=== PATIENT | female | born 1930 | race Caucasian/White ===

== ENCOUNTER 2017-03-20 11:54 | Observation (INO) ==
[2017-03-20] MEDS ORDERED: 0.9 % SODIUM CHLORIDE 1,000 ML IV ONE (12:11)
--- NOTE | 2017-03-20 12:11 | Emergency Department Note ---
Nausea/Vomiting/Diarrhea HPI - General Chief complaint: Nausea/Vomiting/Diarrhea Stated complaint: n/v/d Time Seen by Provider: 03/20/17 12:07 Source: patient Mode of arrival: ambulatory Limitations: no limitations - History of Present Illness HPI Narrative: This patient has had nausea vomiting and and diarrhea for the last 3 days. She gets slight abdominal discomfort before she has a bowel movement. Has been having 4-5 episodes of diarrhea per day. - Related Data Home Medications Medication Instructions Recorded Confirmed lidocaine 5 % topical patch 2 mg TRANSDERMA Q72 06/21/15 03/20/17 melatonin 3 mg tablet 3 mg PO HS PRN 05/29/16 03/20/17 Previous Rx's Medication Instructions Recorded OXYGEN AND SUPPLIES #1 each 10/28/15 apixaban 2.5 mg tablet 2.5 mg PO BID #60 tab 08/06/16 furosemide 20 mg tablet 20 mg PO QDAY #90 tab 12/05/16 carvedilol 3.125 mg tablet 1.56 mg PO BID #90 tab 01/01/17 paroxetine 40 mg tablet 40 mg PO QDAY 90 Days 01/01/17 clonazepam 1 mg tablet 1 mg PO .COMPLEX PRN #90 tab 02/01/17 fentanyl 12 mcg/hr transdermal 1 patch TRANSDERMA Q72H #10 patch 02/05/17 patch HYDROcodone/APAP 10/325MG [[place] 1 - 2 tab PO Q4H PRN #60 tab 02/22/17 10/325Mg] acetaminophen 300 mg-codeine 30 mg 2 tab PO Q6H PRN #120 tab 02/22/17 tablet Allergies Allergy/AdvReac Type Severity Reaction Status Date / Time latex [LATEX] Allergy Unknown SWELLING Verified 03/20/17 11:58 penicillin V Allergy Unknown Unknown Verified 03/20/17 11:58 Sulfa (Sulfonamide Allergy Unknown Unknown Verified 03/20/17 11:58 Antibiotics) tetanus toxoid, adsorbed Allergy Unknown Unknown Verified 03/20/17 11:58 ciprofloxacin [From Cipro] AdvReac Intermediate Cramping Verified 03/20/17 11:58 of the Muscles Review of Systems All systems ED: reviewed and negative except as stated. Past Medical History - Past Medical History PMFSH Narrative: Medical History (Last Reviewed 03/20/17 @ 11:41 by Sandi Crabtree, DNP, BABY DOCTOR) Renal artery stenosis (Chronic) Congestive heart failure (Chronic) Allergic rhinitis (Chronic) Cerebrovascular accident (Resolved) COPD (chronic obstructive pulmonary disease) (Chronic) Tricuspid regurgitation (Chronic) Schatzki's ring (Chronic) Pulmonary hypertension (Chronic) Osteoporosis (Chronic) Osteoarthritis (Chronic) Mitral regurgitation (Chronic) Macular degeneration (Chronic) Leukocytosis (Chronic) Insomnia (Chronic) Hypokalemia (Chronic) Hypertension, benign (Chronic) Gastroesophageal reflux (Chronic) Dysphagia (Chronic) Dizziness (Chronic) Depressive disorder (Chronic) DJD (degenerative joint disease) (Chronic) Constipation (Chronic) Cataracts, bilateral (Chronic) Back pain (Chronic) Atrial fibrillation (Chronic) Aortic valve insufficiency (Chronic) Anxiety disorder (Chronic) Acute bronchitis (Resolved) Balance problems (Resolved) CVA (cerebral vascular accident) (Resolved) Closed femur fracture (Resolved) Closed fracture of wrist (Resolved) Closed hip fracture (Resolved) Fever of unknown origin (Resolved) Gastritis (Resolved) Hoarseness (Resolved) Ischemic colitis (Resolved) Low oxygen saturation (Resolved) Pain associated with defecation (Resolved) Pneumonia (Resolved) Sebaceous cyst (Resolved) Sepsis (Resolved) Shortness of breath (Resolved) Past Surgical History (Last Reviewed 03/20/17 @ 11:41 by Sandi Crabtree, GISELLE, BABY DOCTOR) History of appendectomy (Resolved) History of colon resection (Resolved) History of hip surgery (Resolved) History of intestinal surgery (Resolved) Hx of adenoidectomy (Resolved) Hx of cataract surgery (Resolved) Hx of cholecystectomy (Resolved) Hx of esophagogastroduodenoscopy (Resolved) Hx of hysterectomy (Resolved) Hx of oophorectomy (Resolved) Hx of plastic surgery (Resolved) Hx of reduction mammoplasty (Resolved) Hx of tonsillectomy (Resolved) Family History (Last Reviewed 03/20/17 @ 11:41 by Sandi Crabtree, GISELLE, BABY DOCTOR) sister Malignant neoplasm of brain Malignant Neoplasm of Skin son Malignant neoplasm of brain mother Malignant neoplasm of breast Malignant neoplasm of colon Essential hypertension Acute myocardial infarction Medical history: Reports: atrial fibrillation, hypertension, valvular heart disease, other (UTIsRenal artery stenosis) Surgical history ED: Reports: appendectomy, breast surgery, cholecystectomy, orthopedic, other (right hip pin), EL/BSO, other (tonsillectomy, small bowel resection for ischemia, cystopexy) - Social History Alcohol use: Reports: Rarely Drug use: Reports: none Physical Exam - General Limitations: no limitations General appearance: alert, in no apparent distress - Head Head exam: atraumatic, normocephalic - Eye Eye exam: Present: normal appearance - ENT ENT exam: normal exam - Neck Neck exam: Present: normal inspection - Chest Chest inspection: Present: normal inspection - Respiratory Respiratory exam: Present: normal lung sounds bilaterally - Cardiovascular Cardiovascular exam: Present: regular rate, normal rhythm, normal heart sounds - Abdominal Exam Abdominal exam: Present: soft. Absent: distention, tenderness - Neurological Exam Neurological exam: Present: alert - Psychiatric Psychiatric exam: Present: normal affect, normal mood - Skin Skin exam: Present: warm, dry Course Vital Signs Temperature 97.2 F 03/20/17 11:54 Pulse Rate 64 03/20/17 11:54 Respiratory Rate 14 03/20/17 11:54 Blood Pressure 128/84 03/20/17 11:54 Pulse Oximetry (%) 95 03/20/17 11:54 Temperature 97.2 F 03/20/17 11:54 Pulse Rate 70 03/20/17 14:31 Respiratory Rate 21 03/20/17 14:31 Blood Pressure 148/76 03/20/17 14:31 Pulse Oximetry (%) 96 03/20/17 14:31 Nausea/Vomiting/Diarrhea - [facility] Narrative Medical decision making narrative: This patient is dehydrated with hypokalemia and will be admitted to the hospital by the hospitalist. - Lab Data Lab results reviewed: Yes I reviewed the patient's lab results. Result diagrams: 03/20/17 12:33 03/20/17 12:33 Lab Results 03/20/17 03/20/17 03/20/17 Range/Units 12:33 12:33 14:30 WBC 5.2 (4.5-11.0) K/mcL RBC 4.14 (4.00-5.20) M/mcL Hgb 12.5 (12.0-15.0) g/dL Hct 36.5 (36.0-48.0) % MCV 88.1 (80.0-100.0) fL MCH 30.2 (26.0-34.0) pg MCHC 34.3 (31.0-36.0) g/dL RDW 14.4 (11.5-14.5) % Plt Count 141 (140-440) K/mcL MPV 9.0 (7.4-10.4) fL Gran % 57.3 (38.0-78.0) % Lymph % (Auto) 34.5 (15.5-49.0) % [place] % (Auto) 6.5 (1.0-12.0) % Eos % (Auto) 1.2 (0.0-7.0) % Baso % (Auto) 0.5 (0.0-2.0) % Gran # 3.0 (1.8-8.0) K/mcL Lymph # (Auto) 1.8 (1.5-4.8) K/mcL [place] # (Auto) 0.3 (0.1-0.9) K/mcL Eos # (Auto) 0.1 (0.0-0.7) K/mcL Baso # (Auto) 0 (0.0-0.3) K/mcL Sodium 139 (133-145) mmol/L Potassium 2.7 L* (3.3-5.1) mmol/L Chloride 93 L (96-108) mmol/L Carbon Dioxide 30 (22-30) mmol/L Anion Gap 16.0 (8-16) BUN 25 H (8-23) mg/dl Creatinine 1.3 H (0.6-1.1) mg/dl GFR Calculation 37 Glucose 110 H (70-105) mg/dL Calcium 9.3 (8.6-10.4) mg/dl Total Bilirubin 0.9 (0.0-1.0) mg/dL AST 25 (0-37) U/l ALT 9 (0-40) U/l Alkaline Phosphatase 60 (39-117) U/L Total Protein 7.6 (5.9-8.4) gm/dL Albumin 4.3 (3.2-5.2) gm/dL Globulin 3.3 (2.2-3.7) gm/dL Albumin/Globulin Ratio 1.3 (1.0-2.3) Urine Color Straw Urine Appearance Clear Urine pH 6.0 (5.0-9.0) Ur Specific [place] 1.006 (1.000-1.035) Urine Protein Neg (NEG) mg/dL Urine Glucose (UA) Negative (NEG) mg/dL Urine Ketones Neg (NEG) mg/dL Urine Occult Blood Neg (<0.03) mg/dL Urine Nitrate Neg (NEG) Urine Bilirubin Neg (NEG) mg/dL Urine Urobilinogen Neg (NEG) mg/dL Ur Leukocyte Esterase Neg (NEG) /uL Ur Culture Indicated? No Disposition Clinical Impression: Gastroenteritis, Dehydration, Hypokalemia Disposition: Xfer As Inpt ([facility]) Condition: Good Referrals: Sandi Crabtree, GISELLE, BABY DOCTOR [Primary Care Provider] - Time of Disposition: 15:13
[2017-03-20 12:59] LABS: Basophils # (Auto) 0 K/mcL (0.0-0.3); Basophils % (Auto) 0.5 % (0.0-2.0); Eosinophils # (Auto) 0.1 K/mcL (0.0-0.7); Eosinophils % (Auto) 1.2 % (0.0-7.0); Granulocytes % (Auto) 57.3 % (38.0-78.0); Lymphocytes # (Auto) 1.8 K/mcL (1.5-4.8); Lymphocytes % (Auto) 34.5 % (15.5-49.0); Mean Cell Volume 88.1 fL (80.0-100.0); Mean Corpuscular HGB Conc 34.3 g/dL (31.0-36.0); Mean Corpuscular Hemoglobin 30.2 pg (26.0-34.0); Monocytes # (Auto) 0.3 K/mcL (0.1-0.9); Monocytes % (Auto) 6.5 % (1.0-12.0); Platelet Count 141 K/mcL (140-440); RBC 4.14 M/mcL (4.00-5.20); Red Cell Distribution Width 14.4 % (11.5-14.5)
[2017-03-20 13:33] LABS: ALT/SGPT 9 U/l (0-40); Albumin 4.3 gm/dL (3.2-5.2); Albumin/Globulin Ratio 1.3 (1.0-2.3); Alkaline Phosphatase 60 U/L (39-117); Blood Urea Nitrogen 25 mg/dl (8-23)
[2017-03-20] MEDS ORDERED: POTASSIUM CHLORIDE 40 MEQ in DEXTROSE 5% IN WATER 500 ML IV ONE (14:01)
[2017-03-20] MEDS ORDERED: ACETAMINOPHEN W/CODEINE #3 1 TABLET PO ONE (14:46)
[2017-03-20 14:54] LABS: Appearance,Urine CLEAR; Bilirubin,Urine NEG (NEG); Color,Urine STRAW; Glucose,Urine (UA) NEGATIVE (NEG); Leukocyte Esterase,Urine NEG /uL (NEG); Nitrate,Urine NEG (NEG); Protein,Urine NEG (NEG); Specific Gravity,Urine 1.006 (1.000-1.035); Urine Blood NEG mg/dL (<0.03); Urobilinogen,Urine NEG (NEG)
--- NOTE | 2017-03-20 15:08 | Internal Med History&Physical ---
Medical - H&P: HPI Patient information: Note initiated : 03/20/17 at 2:56 pm Patient: Gin Feng 87 y/o F admitted on for n/v/d. History of present illness: Ms. Feng is a 87 year old white female who, according to her daughter, has chronic pain and has had chronic bowel symptoms for many many years. She reports that she often has alternating constipation and diarrhea. She has noticed some increased dizziness over the last several days, and had nausea and vomiting yesterday and the day before. She presented to her primary care office this morning, and systolic blood pressure was 68, so they sent her over to the emergency room. She denies recent fever or chills. She does have chronic intermittent vertigo, which is led to several falls in the past, with resulting broken bones. She does note occasional abdominal cramping prior to having diarrhea. However, she has not had vomiting or diarrhea at all today. ER evaluation showed significant hypokalemia and acute renal injury. - she denies recent antibiotic use. Has not eaten anything unusual or been traveling. Otherwise, she denies headaches, new eye or ear symptoms, sore throat or cough, chest pain or palpitations. She says she has occasional dyspnea with exertion, which is chronic. She denies melena or bright red blood per rectum, or dysuria. She does have chronic intermittent incontinence. Medical History Allergic rhinitis (Chronic) Anxiety disorder (Chronic) Aortic valve insufficiency, MR, TR CHF Atrial fibrillation (Chronic) Back pain (Chronic) COPD (chronic obstructive pulmonary disease) (Chronic) confirmed on PFT 08/2015; history of smoking Constipation (Chronic) DJD (degenerative joint disease) (Chronic) Depressive disorder (Chronic) Dizziness (Chronic) Dysphagia (Chronic) Dr. Soto; history of esophageal swallowing disorder Gastroesophageal reflux (Chronic) Hypertension, benign (Chronic) Hypokalemia (Chronic) Insomnia (Chronic) Macular degeneration (Chronic) Osteoarthritis (Chronic) Osteoporosis (Chronic) Pulmonary hypertension (Chronic) Renal artery stenosis (Chronic) left sided on CT of 05/31/16 Schatzki's ring (Chronic) CVA (cerebral vascular accident) (Resolved) 1. Echocardiogram 08/24/2015 mod aortic regurg, LVEF 55% 2. ULS carotids 09/16/2015 No significant stenosis 3. 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; discharged 11/06 after 3 day hospitalization. Acute ischemic colitis of the distal transverse colon Pneumonia (Resolved),Sepsis (Resolved) Surgical History History of appendectomy (Resolved), History of colon resection (Resolved) 2006-2 feet of small bowel removed due to ischemic gangrenous bowel secondary to adhesion and a volvulus per Dr. Thomas History of hip surgery (Resolved) 10/27/14-Dr. Ram-Right hip intramedullary nailing History of intestinal surgery (Resolved) Bowel surgery to remove adhesions Hx of adenoidectomy (Resolved) ,Hx of cataract surgery (Resolved), Hx of cholecystectomy (Resolved) 2004 Hx of esophagogastroduodenoscopy (Resolved), 11/23/14, Hx of hysterectomy (Resolved),41 years of age, Hx of oophorectomy ( Resolved) 41 years of age,Hx of plastic surgery (Resolved)45 years of age- eyelid surgery for excessive skin Hx of reduction mammoplasty (Resolved) 54 years of age Hx of tonsillectomy (Resolved) 11 years of age Medications: Paxil 40 mg daily Melatonin 3 mg nightly as needed Lidoderm patch topically every afternoon Lasix 20 mg daily next line fentanyl patch 12 mcg/h, every 3 days Clonazepam 1 mg p.o. daily as needed anxiety Coreg 3.125 mg p.o. twice daily Apixaban 2.5 mg p.o. twice daily Tylenol No. 3 2 tabs every 6 hours as needed pain [place] 10/325 1-2 every 4 hours as needed (this was given to her by orthopedics, and she was told not to take it at the same time as the Tylenol with codeine, but her daughter thinks she probably takes both) Oxygen for home use. They report she uses this occasionally if she feels short of breath, just as needed. Allergies: Penicillin Sulfa Ciprofloxacin Latex Tetanus Family History Sister--Malignant neoplasm of brain,Malignant Neoplasm of Skin son Malignant neoplasm of brain mother Malignant neoplasm of breast,Malignant neoplasm of colon,Essential hypertension ,Acute myocardial infarction Social History She lives alone. Her grandson does come and spend the night at her house every night, to keep an eye on her. Her daughter has been thinking it might be time to look at assisted living. lives independently: Yes pets and animals: Yes pets and animals: dog(s), cat(s) smoking status: Was a previous smoker, but quit about 20 years ago. alcohol intake frequency: does not drink substance use type: does not use Medical - H&P: Meds Home Medications Medication Instructions Recorded Confirmed Type lidocaine 5 % topical patch 2 mg TRANSDERMA Q72 06/21/15 03/20/17 History OXYGEN AND SUPPLIES #1 each 10/28/15 03/20/17 Rx melatonin 3 mg tablet 3 mg PO HS PRN 05/29/16 03/20/17 History apixaban 2.5 mg tablet 2.5 mg PO BID #60 tab 08/06/16 03/20/17 Rx furosemide 20 mg tablet 20 mg PO QDAY #90 tab 12/05/16 03/20/17 Rx carvedilol 3.125 mg tablet 1.56 mg PO BID #90 tab 01/01/17 03/20/17 Rx paroxetine 40 mg tablet 40 mg PO QDAY 90 Days 01/01/17 03/20/17 Rx clonazepam 1 mg tablet 1 mg PO .COMPLEX PRN #90 tab 02/01/17 03/20/17 Rx fentanyl 12 mcg/hr transdermal 1 patch TRANSDERMA Q72H #10 patch 02/05/17 Rx patch HYDROcodone/APAP 10/325MG [[place] 1 - 2 tab PO Q4H PRN #60 tab 02/22/17 03/20/17 Rx 10/325Mg] acetaminophen 300 mg-codeine 30 mg 2 tab PO Q6H PRN #120 tab 02/22/17 03/20/17 Rx tablet Allergies Allergy/AdvReac Type Severity Reaction Status Date / Time latex [LATEX] Allergy Unknown SWELLING Verified 03/20/17 11:58 penicillin V Allergy Unknown Unknown Verified 03/20/17 11:58 Sulfa (Sulfonamide Allergy Unknown Unknown Verified 03/20/17 11:58 Antibiotics) tetanus toxoid, adsorbed Allergy Unknown Unknown Verified 03/20/17 11:58 ciprofloxacin [From Cipro] AdvReac Intermediate Cramping Verified 03/20/17 11:58 of the Muscles Medical - H&P: Exam - Constitutional Vitals: Temp Pulse Resp BP Pulse Ox 97.2 F 70 21 148/76 96 03/20/17 11:54 03/20/17 14:31 03/20/17 14:31 03/20/17 14:31 03/20/17 14:31 Blood pressure in clinic was reported as 68/48. On exam, she is a well-developed well-nourished, slender white female in no acute distress. Head: Normocephalic, atraumatic. Eyes: PERRLA, EOMI, anicteric. No nystagmus is noted. Ears: She has bilateral cerumen. Pharynx: Is clear. She has a full upper plate. Lower teeth are in good repair. Mucosa appears normal. Neck: Is supple, without obvious lymphadenopathy, JVD, thyromegaly, bruits. Cardiac exam shows slightly irregular rhythm, with normal S1 and S2, without obvious murmurs, rubs, gallops. Lungs are clear to auscultation, without rales, rhonchi, wheezes. Abdomen: Is soft and nontender without obvious masses. Bowel sounds are active. There is no guarding or rebound. Extremities: Show no cyanosis, clubbing, edema. neurologic: Patient is alert and oriented 3. Mood and affect appear normal. She is somewhat hard of hearing. Exam is otherwise grossly nonfocal. Medical - H&P: Reslt - Labs CBC & Chem 7: 03/20/17 12:33 03/20/17 12:33 Labs: Short CBC 03/20/17 Range/Units 12:33 WBC 5.2 (4.5-11.0) K/mcL Hgb 12.5 (12.0-15.0) g/dL Hct 36.5 (36.0-48.0) % Plt Count 141 (140-440) K/mcL BMP 03/20/17 12:33 Sodium 139 Potassium 2.7 L* Chloride 93 L Carbon Dioxide 30 BUN 25 H Creatinine 1.3 H Glucose 110 H Calcium 9.3 Liver Function 03/20/17 Range/Units 12:33 Total Bilirubin 0.9 (0.0-1.0) mg/dL AST 25 (0-37) U/l ALT 9 (0-40) U/l Alkaline Phosphatase 60 (39-117) U/L Albumin 4.3 (3.2-5.2) gm/dL Urine 03/20/17 Range/Units 14:30 Urine Color Straw Urine Appearance Clear Urine pH 6.0 (5.0-9.0) Ur Specific [place] 1.006 (1.000-1.035) Urine Protein Neg (NEG) mg/dL Urine Glucose (UA) Negative (NEG) mg/dL Medical - H&P: A/P (1) Nausea & vomiting Current visit: Yes Status: Acute (2) Acute kidney injury Current visit: Yes Status: Acute (3) Anticoagulant long-term use Current visit: Yes Status: Chronic (4) Hypokalemia Current visit: Yes Status: Acute (5) COPD (chronic obstructive pulmonary disease) Problem details: confirmed on PFT 08/2015; history of smoking Current visit: No Status: Chronic (6) Atrial fibrillation Problem details: restart Coumadin tomorrow after eval completed, INR 1.8 today Current visit: No Status: Chronic (7) Vertigo Current visit: Yes Status: Chronic - Narrative A/P Narrative: #1. GI. -This patient presents with nausea, vomiting, diarrhea, possibly consistent with acute gastroenteritis. She also presents with hypotension, and acute kidney injury, associated with hypokalemia, again due to vomiting. -She actually says she has not had vomiting or diarrhea today, but is feeling quite weak. -Admit for monitoring on telemetry -IV fluids -Stool studies she produces any more stool. -Ulcer prophylaxis with Pepcid. -She reports a long history of intermittent diarrhea and constipation. I would like to check an abdominal film, to be sure she does not have chronic constipation with liquid stool leaking around. -Anti-emetics as needed. 2. Cardiac. Patient presented to clinic with systolic blood pressure of 68. IV fluids. -Check EKG, chest x-ray. -Chronic atrial fibrillation, maintained on apixaban. Monitor on telemetry. Continue apixaban. Guaiac stools. -Check screening EKG . -Hypertension. Monitor. -History of CHF. Monitor closely while receiving IV fluids. Continue Coreg. 3. Renal. Patient presents with mild acute kidney injury. Monitor after hydration. 4. Pulmonary. History of COPD and pulmonary hypertension. Continue oxygen as needed. Albuterol nebs as needed. -Check screening chest x-ray. At risk for aspiration. 5. CODE STATUS: The patient would like a limited code. She does not want intubation, chest compressions, defibrillation, but would accept IV fluids, vasopressors, and other noninvasive measures. 6. DVT prophylaxis: Continue apixaban. Add SCDs in case she cannot hold down her apixaban. 7. History of depression -Continue Paxil. Continue as needed clonazepam. 8. Neurologic. History of TIA/stroke. Continue apixaban. 9. Chronic pain. Continue fentanyl patch, Lidoderm patch, as needed [place] or Tylenol No. 3. Clarify her home regimen. . Add IV morphine as needed. This visit took approximately 60 minutes, to review the patient's case with the ER MD, review her records and test results, interview and examine her, review plan of care with the patient and her daughter, and write orders.
[2017-03-20] MEDS ORDERED: ACETAMINOPHEN 325 MG TABLET PO PRN (17:07)
[2017-03-20] MEDS ORDERED: POTASSIUM CHLORIDE 40 MEQ in DEXTROSE 5%-1/2NS 1,000 ML IV SCH (17:07)
[2017-03-20] MEDS ORDERED: ALBUTEROL SULFATE 2.5 MG/3 ML NEBULIZER NEB PRN (17:07)
[2017-03-20] MEDS ORDERED: ONDANSETRON 4 MG/2 ML VIAL IV PRN (17:07)
[2017-03-20] MEDS ORDERED: NALOXONE HCL 0.4 MG/ML VIAL IV PRN (17:07)
[2017-03-20] MEDS ORDERED: DOCUSATE SODIUM 100 MG CAPSULE PO PRN (17:07)
[2017-03-20] MEDS: DEXTROSE 5%-1/2NS W/40MEQ KCL 1,000 ML IV SCH (17:44)
--- NOTE | 2017-03-20 20:38 | XRay Report ---
CLINICAL INFORMATION: Nausea and vomiting TECHNIQUE: AP portable semierect chest x-ray COMPARISON: 02/19/2017, 05/25/2016, 10/16/2015 FINDINGS: No acute or focal pulmonary parenchymal infiltrate. No parenchymal mass. Lungs are negative. There is cardiomegaly, unchanged. Pulmonary vascularity is normal. No pulmonary congestion or pulmonary edema. No hilar or mediastinal abnormalities. No pleural fluid. IMPRESSION: 1. Cardiomegaly. No pulmonary edema or pulmonary congestion 2. No acute abnormality. No interval change since 02/19/2017 Interpreted and Authenticated by: Miguel Osuna 03/20/17
--- NOTE | 2017-03-20 20:44 | XRay Report ---
CLINICAL INFORMATION: Nausea and vomiting TECHNIQUE: AP portable supine abdomen COMPARISON: Previous CT scan dated 05/30/2016 FINDINGS: Bowel gas pattern is unremarkable and nonspecific. No dilated gas-filled small bowel. No evidence for mechanical small bowel obstruction. No focal abnormality. No pneumatosis. No biliary or portal venous gas. An upright abdomen was not obtained. There are sutures in the pelvis overlying the sacrum. There are surgical clips in the right side of the abdomen IMPRESSION: Nonspecific bowel gas pattern. No evidence for small bowel obstruction Interpreted and Authenticated by: Miguel Osuna 03/20/17
[2017-03-20] MEDS: FAMOTIDINE/PF 20 MG/2 ML VIAL IV SCH (21:36)
[2017-03-21] MEDS ORDERED: POTASSIUM CHLORIDE 80 MEQ in DEXTROSE 5% IN WATER 1,000 ML IV ONE ×2 (00:12→08:00)
[2017-03-21] MEDS ORDERED: POTASSIUM CHLORIDE 20 MEQ/10 ML VIAL IV ONE (00:20)
[2017-03-21] MEDS: DEXTROSE 5%-1/2NS W/40MEQ KCL 1,000 ML IV SCH ×2 (05:40→16:32)
[2017-03-21 06:18] LABS: Basophils # (Auto) 0 K/mcL (0.0-0.3); Basophils % (Auto) 0.4 % (0.0-2.0); Eosinophils # (Auto) 0.1 K/mcL (0.0-0.7); Eosinophils % (Auto) 2.1 % (0.0-7.0); Granulocytes % (Auto) 41.1 % (38.0-78.0); Lymphocytes # (Auto) 2.2 K/mcL (1.5-4.8); Mean Cell Volume 89.6 fL (80.0-100.0); Mean Corpuscular HGB Conc 34.4 g/dL (31.0-36.0); Mean Corpuscular Hemoglobin 30.8 pg (26.0-34.0); Monocytes # (Auto) 0.6 K/mcL (0.1-0.9); Monocytes % (Auto) 11.4 % (1.0-12.0); Platelet Count 121 K/mcL (140-440); RBC 3.75 M/mcL (4.00-5.20); Red Cell Distribution Width 14.5 % (11.5-14.5)
[2017-03-21 07:09] LABS: ALT/SGPT 7 U/l (0-40); Alkaline Phosphatase 52 U/L (39-117); Bilirubin,Direct < 0.2 mg/dL (0.0-0.3); Blood Urea Nitrogen 19 mg/dl (8-23); Gamma Glutamyl Transpeptidase 22 U/L (5-36); Uric Acid 7.4 mg/dL (2.5-8.0)
[2017-03-21 07:21] LABS: Albumin/Globulin Ratio 1.4 (1.0-2.3)
[2017-03-21] MEDS ORDERED: ACETAMINOPHEN W/CODEINE #3 1 TABLET PO PRN (07:31)
[2017-03-21] MEDS ORDERED: clonazePAM 0.5 MG TABLET PO PRN (07:32)
[2017-03-21] MEDS: POTASSIUM CHLORIDE 20 MEQ TABLET PO SCH ×2 (08:07→16:36)
[2017-03-21] MEDS: FAMOTIDINE/PF 20 MG/2 ML VIAL IV SCH (08:22)
[2017-03-21] MEDS: CARVEDILOL 3.125 MG TABLET PO SCH ×2 (08:23→16:36)
[2017-03-21] MEDS ORDERED: PARoxetine 20 MG TABLET PO SCH (09:00)
[2017-03-21] MEDS ORDERED: APIXABAN 2.5 MG TABLET PO SCH (09:00)
[2017-03-21] MEDS ORDERED: fentaNYL 12 MCG PATCH TOPICAL SCH (10:00)
[2017-03-21 16:34] LABS: Blood Urea Nitrogen 16 mg/dl (8-23)
--- NOTE | 2017-03-21 17:58 | Discharge Summary ---
Medical - DS: Prov Patient information: Note initiated : 03/21/17 at 5:53 pm Service Date, if different from initiated Date: [] Patient: Gin Feng 87 y/o F admitted on 03/20/17 for N/V/D, Gastroenteritis, Dehydration, Hypokalemia. Chief Complaint: [] Date of admission: 03/20/17 16:10 Discharge date: 03/21/17 Primary care physician: Sandi Crabtree LASER/ELECTRO OPTICS TECHNICIAN, phone number [phone] Admitting clinician: Kalli Chavarria Attending physician on discharge: Kalli Chavarria Medical - DS: Meds - Discharge Medications Prescriptions: Potassium Chloride [Klor-Con M20] 20 meq PO QAMCC #1 tab.er.prt Walker [Ultra-Light Rollator] 1 each MC DAILY #1 each Active and Home Medications: Discharge medications: Please resume potassium chloride 20 mEq 1 p.o. daily, with any dose of Lasix lidocaine 5 % topical patch 2 mg TRANSDERMA Q72 06/21/15 [History Confirmed 08/25 Last Taken 02/21/17] OXYGEN AND SUPPLIES #1 each 10/28/15 [Rx Confirmed 03/20/17 Last Taken 02/21/17 ] melatonin 3 mg tablet 3 mg PO HS PRN 05/29/16 [History Confirmed 03/20/17 Last Taken 02/21/17] apixaban 2.5 mg tablet 2.5 mg PO BID #60 tab 08/06/16 [Rx Confirmed 03/20/17 Last Taken 02/21/17] furosemide 20 mg tablet 20 mg PO QDAY #90 tab 12/05/16 [Rx Confirmed 03/21/17 Last Taken 02/21/17] carvedilol 3.125 mg tablet 1.56 mg PO BID #90 tab 01/01/17 [Rx Confirmed Last Taken 02/22/17 06:00] paroxetine 40 mg tablet 40 mg PO QDAY 90 Days 01/01/17 [Rx Confirmed 03/20/17 Last Taken 02/21/17] clonazepam 1 mg tablet 1 mg PO .COMPLEX PRN #90 tab 02/01/17 [Rx Confirmed 03/21 Last Taken 02/21/17] fentanyl 12 mcg/hr transdermal patch 1 patch TRANSDERMA Q72H #10 patch 02/05/17 [Rx Confirmed 03/21/17 Last Taken 02/21/17] Please stop HYDROcodone/APAP 10/325MG [[place] 10/325Mg] 1 - 2 tab PO Q4H PRN #60 tab 02/22/17 [Rx Confirmed 03/20/17 Last Taken Unknown] acetaminophen 300 mg-codeine 30 mg tablet 2 tab PO Q6H PRN #120 tab 02/22/17 [ Rx Confirmed 03/21/17 Last Taken Unknown] Previous home Medications lidocaine 5 % topical patch 2 mg TRANSDERMA Q72 06/21/15 [History Confirmed 08/25 Last Taken 02/21/17] OXYGEN AND SUPPLIES #1 each 10/28/15 [Rx Confirmed 03/20/17 Last Taken 02/21/17 ] melatonin 3 mg tablet 3 mg PO HS PRN 05/29/16 [History Confirmed 03/20/17 Last Taken 02/21/17] apixaban 2.5 mg tablet 2.5 mg PO BID #60 tab 08/06/16 [Rx Confirmed 03/20/17 Last Taken 02/21/17] furosemide 20 mg tablet 20 mg PO QDAY #90 tab 12/05/16 [Rx Confirmed 03/21/17 Last Taken 02/21/17] carvedilol 3.125 mg tablet 1.56 mg PO BID #90 tab 01/01/17 [Rx Confirmed Last Taken 02/22/17 06:00] paroxetine 40 mg tablet 40 mg PO QDAY 90 Days 01/01/17 [Rx Confirmed 03/20/17 Last Taken 02/21/17] clonazepam 1 mg tablet 1 mg PO .COMPLEX PRN #90 tab 02/01/17 [Rx Confirmed 03/21 Last Taken 02/21/17] fentanyl 12 mcg/hr transdermal patch 1 patch TRANSDERMA Q72H #10 patch 02/05/17 [Rx Confirmed 03/21/17 Last Taken 02/21/17] HYDROcodone/APAP 10/325MG [[place] 10/325Mg] 1 - 2 tab PO Q4H PRN #60 tab [Rx Confirmed 03/20/17 Last Taken Unknown] acetaminophen 300 mg-codeine 30 mg tablet 2 tab PO Q6H PRN #120 tab 02/22/17 [ Rx Confirmed 03/21/17 Last Taken Unknown] Medical - DS: Hosp Hospital course: Mr. Feng is a 87 year old F March 20, 2017: History of present illness: Ms. Feng is a 87 year old white female who, according to her daughter, has chronic pain and has had chronic bowel symptoms for many many years. She reports that she often has alternating constipation and diarrhea. She has noticed some increased dizziness over the last several days, and had nausea and vomiting yesterday and the day before. She presented to her primary care office this morning, and systolic blood pressure was 68, so they sent her over to the emergency room. She denies recent fever or chills. She does have chronic intermittent vertigo, which is led to several falls in the past, with resulting broken bones. She does note occasional abdominal cramping prior to having diarrhea. However, she has not had vomiting or diarrhea at all today. ER evaluation showed significant hypokalemia and acute renal injury. - she denies recent antibiotic use. Has not eaten anything unusual or been traveling. Otherwise, she denies headaches, new eye or ear symptoms, sore throat or cough, chest pain or palpitations. She says she has occasional dyspnea with exertion, which is chronic. She denies melena or bright red blood per rectum, or dysuria. She does have chronic intermittent incontinence. March 21: Hospital course: The patient was admitted for severe hypokalemia. She did not have further nausea, vomiting, diarrhea. However her potassium continued to be severely low. She was given over 200 mEq of potassium IV and p.o. over the last 24 hours. This evening her potassium is finally back up to normal. She admitted today that she was continuing to take her Lasix at home, but had stopped her potassium sometime ago because she was tired of it. She did have a formed bowel movement today. She otherwise denies fever or chills or headaches. She thinks her dizziness is better. She denies chest pain or palpitations, shortness of breath, abdominal pain, nausea or vomiting, diarrhea or constipation. On exam, she is sitting up in a chair having dinner. Neck is supple without obvious JVD. Cardiac exam shows regular rate and rhythm. Lungs are clear to auscultation. Abdomen is soft and nontender. Extremities show no edema. Neurologic exam is grossly nonfocal, but not tested in detail. Assessment and plan: #1. GI. -This patient presents with nausea, vomiting, diarrhea, possibly consistent with acute gastroenteritis. She also presents with hypotension, and acute kidney injury, associated with hypokalemia, again due to vomiting. All of her symptoms essentially resolved overnight. Her potassium was still severely low this morning, but after aggressive replacement with IV and oral today, she is now back up to normal. -She would like to return home this evening. I have notified her daughter. Her grandson does stay with her at night, but her daughter says the patient is increasingly unsteady on her feet and prone to falls. Physical therapy did suggest that we for refer her for home physical therapy, and also get her a hemiwalker, regarding her wrist fracture. I will also ask social work to touch base with the patient's daughter, to review what her options are for getting more care for her mom. It sounds like they had looked at qualifying for Medicaid and intermediate placement in the past, when the patient's was alive, and the terms were not acceptable at that time. -She is advised to always take potassium whenever she takes Lasix, and to hold them both if she starts to have diarrhea or vomiting. 2. Cardiac. Patient presented to clinic with systolic blood pressure of 68. IV fluids were given. Blood pressures are ranging from 129-164/68-82 today. -Chronic atrial fibrillation, maintained on apixaban. -History of CHF. Stable. Continue Coreg. Continue Lasix. Take potassium. 3. Renal. Patient presents with mild acute kidney injury. Renal function appears back to normal today. 4. Pulmonary. History of COPD and pulmonary hypertension. Continue oxygen as needed. 5. CODE STATUS: The patient would like a limited code. She does not want intubation, chest compressions, defibrillation, but would accept IV fluids, vasopressors, and other noninvasive measures. 6. DVT prophylaxis: Continue apixaban. Add SCDs in case she cannot hold down her apixaban. 7. History of depression -Continue Paxil. Continue as needed clonazepam. 8. Neurologic. History of TIA/stroke. Continue apixaban. 9. Chronic pain. Continue fentanyl patch, Lidoderm patch, as needed Tylenol No. 3. -Her daughter notes that there are concerns that the patient overuses her pain medications. She was given [place] recently by her orthopedist, in addition to all of her other pain meds. We would like her to withhold the [place] at this time. We will refer her for home health physical therapy. We will ask social work to touch base with her tomorrow, about other needs, regarding her ongoing unsteady gait and frequent falls. I visited with the patient twice today, and spent approximately 40 minutes, reviewing test results, reviewing plan of care with staff, interviewing and examining the patient, and then reviewing plan of care with her daughter. Discharge diagnosis: Severe hypokalemia. Dehydration due to nausea, vomiting, diarrhea. Vertig - Time Spent with Patient Total time spent providing and/or coordinating discharge services: Greater than 30 minutes Medical - DS: Exam - Constitutional Vitals: Vital Signs Temp Pulse Resp BP BP Pulse Ox 03/21/17 16:00 98.5 F 18 164/82 97 03/21/17 13:50 98.7 F 16 167/78 92 03/21/17 08:20 98.6 F 18 129/68 96 03/21/17 04:00 16 146/70 94 03/21/17 00:00 16 160/87 95 03/20/17 19:22 98.2 F 73 20 166/84 97 Intake and Output 03/21/17 03/21/17 03/21/17 05:59 13:59 21:59 Intake Total 723 / 723 120 / 120 300 / 300 Balance 723 / 723 120 / 120 300 / 300 Intake: IV 723 / 723 Dextrose 5%-1/2Ns W/40Meq 723 / 723 KCl 1,000 ml @ 100 mls/ hr IV Q10H [facility] Rx#: [id number] Oral 120 / 120 300 / 300 Other: Meal Lunch Percent of Meal Consumed 100% # Voids 2 1 1 # Bowel Movements 0 1 Medical - DS: Data Labs on day of discharge: Labs from last 24 hours 03/21/17 03/21/17 03/21/17 15:36 04:20 04:20 WBC 4.9 RBC 3.75 L Hgb 11.6 L Hct 33.6 L MCV 89.6 MCH 30.8 MCHC 34.4 RDW 14.5 Plt Count 121 L MPV 9.4 Gran % 41.1 Lymph % (Auto) 45.0 [place] % (Auto) 11.4 Eos % (Auto) 2.1 Baso % (Auto) 0.4 Gran # 2.0 Lymph # (Auto) 2.2 [place] # (Auto) 0.6 Eos # (Auto) 0.1 Baso # (Auto) 0 Sodium 135 136 Potassium 4.6 2.9 L* Chloride 97 94 L Carbon Dioxide 26 26 Anion Gap 12.0 16.0 BUN 16 19 Creatinine 1.0 1.0 GFR Calculation 51 51 Glucose 102 97 Uric Acid 7.4 Calcium 8.8 8.7 Phosphorus 2.8 Magnesium 2.0 Total Bilirubin 0.8 Direct Bilirubin < 0.2 GGT 22 AST 22 ALT 7 Alkaline Phosphatase 52 Lactate Dehydrogenase 153 Total Protein 6.8 Albumin 4.0 Globulin 2.8 Albumin/Globulin Ratio 1.4 Triglycerides 93 03/20/17 22:55 WBC RBC Hgb Hct MCV MCH MCHC RDW Plt Count MPV Gran % Lymph % (Auto) [place] % (Auto) Eos % (Auto) Baso % (Auto) Gran # Lymph # (Auto) [place] # (Auto) Eos # (Auto) Baso # (Auto) Sodium Potassium 2.7 L* Chloride Carbon Dioxide Anion Gap BUN Creatinine GFR Calculation Glucose Uric Acid Calcium Phosphorus Magnesium Total Bilirubin Direct Bilirubin GGT AST ALT Alkaline Phosphatase Lactate Dehydrogenase Total Protein Albumin Globulin Albumin/Globulin Ratio Triglycerides March 21: Stool for fecal leukocytes was negative. March 20: Admission chemistry panel shows sodium of 139, potassium 2.7, chloride 93, BUN 25, creatinine 1.3 LFTs were within normal limits. Urinalysis was essentially normal. EKG showed atrial fibrillation at a rate of 57, with left axis deviation. No significant change from previous Abdominal x-ray showed nonspecific bowel gas pattern with no evidence of obstruction. Chest x-ray showed cardiomegaly but no pulmonary vascular congestion. Medical - DS: A/P - Patient/Caregiver Discharge Instructions Activity: as per physical therapy Diet: Low Sodium (2gm) Additional Instructions: 1. Please always take potassium whenever you take Lasix. If you develop diarrhea, nausea and vomiting, please withhold the Lasix and the potassium. 2. We will refer you for home physical therapy, regarding your unsteadiness on your feet. I have also prescribed a walker, called a hemiwalker, that you can use while your wrist fracture is healing. We will ask social work to touch base with you and your family tomorrow, to assess any other needs regarding your unsteady gait and recent falls. Please consider a visit with an ear nose and throat doctor, regarding your ongoing vertigo. Prescriptions: Potassium Chloride [Klor-Con M20] 20 meq PO QAMCC #1 tab.er.prt Walker [Ultra-Light Rollator] 1 each MC DAILY #1 each Other Amb Orders: Physical Therapy at Discharge - General Location: Determined By Patient - Problem Maintenance (1) Nausea & vomiting Status: Resolved (2) Acute kidney injury Status: Resolved (3) Anticoagulant long-term use Status: Chronic (4) Hypokalemia Status: Resolved (5) COPD (chronic obstructive pulmonary disease) Status: Chronic Comment: confirmed on PFT 08/2015; history of smoking Qualifiers: COPD type: unspecified COPD Qualified Code(s): J44.9 - Chronic obstructive pulmonary disease, unspecified (6) Atrial fibrillation Status: Chronic Comment: restart Coumadin tomorrow after eval completed, INR 1.8 today Qualifiers: Atrial fibrillation type: persistent Qualified Code(s): I48.1 - Persistent atrial fibrillation (7) Vertigo Status: Chronic - Follow up Plan Follow up with: Sandi Crabtree, GISELLE, CIGARETTE CATCHER [Primary Care Provider] - Disposition: Home Health Service Prognosis: Good Rehab Potential: Good I certify that the patient requires SNF services: No Overall status at discharge: patient is progressing back to baseline
[2017-03-21] MEDS ORDERED: LIDOCAINE PATCH TOPICAL SCH (21:00)
== END 2017-03-21 19:00 | disposition home health service (06) ==
LOC: ED 11:54 → ICU 11:54
PROVIDERS: ADMIT Internal Medicine; ATTEND Internal Medicine

== ENCOUNTER 2017-08-15 03:34 | Observation (INO) ==
[2017-08-15] MEDS ORDERED: 0.9 % SODIUM CHLORIDE 1,000 ML IV ONE ×2 (03:45→06:11)
[2017-08-15] MEDS ORDERED: ACETAMINOPHEN 325 MG TABLET PO ONE (04:11)
[2017-08-15] MEDS ORDERED: cefTRIAXone 1 GM VIAL IV ONE (04:12)
[2017-08-15 05:03] LABS: Basophils # (Auto) 0 K/mcL (0.0-0.3); Basophils % (Auto) 0.1 % (0.0-2.0); Eosinophils # (Auto) 0.1 K/mcL (0.0-0.7); Eosinophils % (Auto) 0.9 % (0.0-7.0); Granulocytes % (Auto) 69.2 % (38.0-78.0); Lymphocytes # (Auto) 1.2 K/mcL (1.5-4.8); Lymphocytes % (Auto) 18.7 % (15.5-49.0); Mean Cell Volume 87.3 fL (80.0-100.0); Mean Corpuscular HGB Conc 33.5 g/dL (31.0-36.0); Mean Corpuscular Hemoglobin 29.2 pg (26.0-34.0); Monocytes # (Auto) 0.7 K/mcL (0.1-0.9); Monocytes % (Auto) 11.1 % (1.0-12.0); Platelet Count 103 K/mcL (140-440)
[2017-08-15 05:05] LABS: Appearance,Urine CLEAR; Bacteria,Urine 0 /hpf (0); Bilirubin,Urine NEG (NEG); Color,Urine YELLOW; Glucose,Urine (UA) NEGATIVE (NEG); Leukocyte Esterase,Urine 25 /uL (NEG); Mucus,Urine FEW /hpf (0); Nitrate,Urine NEG (NEG); Protein,Urine 30 mg/dL (NEG); Specific Gravity,Urine 1.013 (1.000-1.035); Urine Amorphous Crystals FEW /hpf (0); Urine Blood 0.03 mg/dL (<0.03); Urine RBC 8 /hpf (0-1); Urine Squamous Epithelial Cell 4 /hpf (0-4); Urine Transitional Epi Cells 1 /hpf (0-2); Urine WBC 70 /hpf (0-4)
[2017-08-15 05:16] LABS: ALT/SGPT 8 U/l (0-40); Albumin 4.4 gm/dL (3.2-5.2); Albumin/Globulin Ratio 1.5 (1.0-2.3); Alkaline Phosphatase 65 U/L (39-117); Blood Urea Nitrogen 13 mg/dl (8-23)
--- NOTE | 2017-08-15 06:59 | Emergency Department Note ---
Fever HPI - General Chief Complaint: Fever Stated Complaint: family suspect UTI Time Seen by Provider: 08/15/17 05:03 Source: family Mode of arrival: wheelchair Limitations: altered mental status - History of Present Illness HPI Narrative: 87-year-old female history of fever over the past 36 hours her temperature is 101.8 having some increased weakness she does live by hersELF. Is complaining of increased weakness and her family has noticed age and her mobility. History of complicated UTIs in the past and family suspicious for this again. Patient is denying any urgency frequency dysuria. Denies abdominal pain denies any chest pain there is no shortness of breath - Related Data Home Medications Medication Instructions Recorded Confirmed lidocaine 5 % topical patch 2 mg TRANSDERMA Q72 06/21/15 08/05/17 melatonin 3 mg tablet 3 mg PO HS PRN 05/29/16 08/05/17 Home 02 HS 08/15/17 Previous Rx's Medication Instructions Recorded OXYGEN AND SUPPLIES #1 each 10/28/15 apixaban 2.5 mg tablet 2.5 mg PO BID #60 tab 08/06/16 furosemide 20 mg tablet 20 mg PO QDAY #90 tab 12/05/16 carvedilol 3.125 mg tablet 1.56 mg PO BID #90 tab 01/01/17 paroxetine 40 mg tablet 40 mg PO QDAY 90 Days #90 tab 01/01/17 fentanyl 12 mcg/hr transdermal 1 patch TRANSDERMA Q72H #10 patch 02/05/17 patch Potassium Chloride [Klor-Con M20] 20 meq PO QAC #1 tab.er.prt 03/21/17 Walker [Ultra-Light Rollator] 1 each MC DAILY #1 each 03/21/17 acetaminophen 300 mg-codeine 30 mg 1 tab PO Q6H PRN #120 tab 08/05/17 tablet clonazepam 1 mg tablet 1 mg PO .COMPLEX PRN #90 tab 08/05/17 fluticasone 50 mcg/actuation nasal See Dose Instructions INTRANASAL 08/05/17 spray,suspension BID #16 g Allergies Allergy/AdvReac Type Severity Reaction Status Date / Time adhesive tape Allergy Mild Rash Verified 08/15/17 03:57 latex [LATEX] Allergy Unknown SWELLING Verified 08/15/17 03:57 penicillin V Allergy Unknown Unknown Verified 08/15/17 03:57 Sulfa (Sulfonamide Allergy Unknown Unknown Verified 08/15/17 03:57 Antibiotics) tetanus toxoid, adsorbed Allergy Unknown Unknown Verified 08/15/17 03:57 ciprofloxacin [From Cipro] AdvReac Intermediate Cramping Verified 08/15/17 03:57 of the Muscles Review of Systems All systems ED: reviewed and negative except as stated. Constitutional: Reports: fever, chills Eyes: Denies: eye pain ENT ED: Denies: ear pain Cardiovascular: Denies: chest pain Respiratory: Denies: cough Gastrointestinal: Denies: abdominal pain, nausea Genitourinary: Denies: urgency, dysuria, frequency, hematuria, discharge Musculoskeletal: Denies: back pain Integumentary: Denies: rash, lesions Neurological: Denies: headache Psychiatric: Denies: anxiety Endocrine: Denies: fatigue Hematological/Lymphatic: Denies: easy bleeding Allergic/Immunologic: Denies: facial swelling Fever PMH - Past Medical History Medical history: Reports: atrial fibrillation, hypertension, valvular heart disease, other (UTIsRenal artery stenosis) Family history: Reports: unable to obtain - Social History smoking status: Former smoker Alcohol use: Reports: Rarely Drug use: Reports: none Physical Exam Limitations: altered mental status General appearance: malaise Head: atraumatic Eye: Present: normal appearance, PERRL ENT: normal exam, normal oropharynx Neck: Present: normal inspection, full ROM, trachea midline Chest: Present: normal inspection, symmetric chest wall rise. Absent: tenderness Respiratory: Present: normal lung sounds bilaterally. Absent: respiratory distress, wheezes Cardiovascular: Present: regular rate, normal rhythm. Absent: bradycardia Abdominal: Present: soft, normal bowel sounds. Absent: distention, tenderness, guarding, rebound, rigidity Extremities: Present: normal inspection, full ROM. Absent: tenderness Back: Present: normal inspection, full ROM. Absent: tenderness Neurological: Present: oriented X3, CN II-XII intact, reflexes normal. Absent: motor sensory deficit Psychiatric: Present: normal affect, normal mood Skin: Present: warm, dry, intact Course Vital Signs Temperature 101.8 F H 08/15/17 03:35 Pulse Rate 95 H 08/15/17 03:35 Respiratory Rate 24 H 08/15/17 03:35 Blood Pressure 190/105 08/15/17 03:35 Pulse Oximetry (%) 89 L 08/15/17 03:35 Temperature 98.4 F 08/15/17 06:36 Pulse Rate 67 08/15/17 06:36 Respiratory Rate 20 08/15/17 06:36 Blood Pressure 170/88 08/15/17 06:36 Pulse Oximetry (%) 96 08/15/17 06:36 Fever - MDM Narrative Medical decision making narrative: DR NIEVES CONSULTED AND PT TO BE ADMITTED FOR COMPLICATED UTI - Lab Data Result diagrams: 08/15/17 03:55 08/15/17 03:55 Lab Results 08/15/17 08/15/17 08/15/17 Range/Units 03:55 03:55 03:55 WBC 6.5 (4.5-11.0) K/mcL RBC 3.80 L (4.00-5.20) M/mcL Hgb 11.1 L (12.0-15.0) g/dL Hct 33.2 L (36.0-48.0) % MCV 87.3 (80.0-100.0) fL MCH 29.2 (26.0-34.0) pg MCHC 33.5 (31.0-36.0) g/dL RDW 15.0 H (11.5-14.5) % Plt Count 103 L (140-440) K/mcL MPV 9.7 (7.4-10.4) fL Gran % 69.2 (38.0-78.0) % Lymph % (Auto) 18.7 (15.5-49.0) % [place] % (Auto) 11.1 (1.0-12.0) % Eos % (Auto) 0.9 (0.0-7.0) % Baso % (Auto) 0.1 (0.0-2.0) % Gran # 4.5 (1.8-8.0) K/mcL Lymph # (Auto) 1.2 L (1.5-4.8) K/mcL [place] # (Auto) 0.7 (0.1-0.9) K/mcL Eos # (Auto) 0.1 (0.0-0.7) K/mcL Baso # (Auto) 0 (0.0-0.3) K/mcL VBG Lactic Acid 0.9 (0.5-2.2) mmol/L Sodium 140 (133-145) mmol/L Potassium 3.8 (3.3-5.1) mmol/L Chloride 101 (96-108) mmol/L Carbon Dioxide 25 (22-30) mmol/L Anion Gap 14.0 (8-16) BUN 13 (8-23) mg/dl Creatinine 0.8 (0.6-1.1) mg/dl GFR Calculation 67 Glucose 105 (70-105) mg/dL Calcium 8.9 (8.6-10.4) mg/dl Total Bilirubin 0.9 (0.0-1.0) mg/dL AST 21 (0-37) U/l ALT 8 (0-40) U/l Alkaline Phosphatase 65 (39-117) U/L Total Protein 7.3 (5.9-8.4) gm/dL Albumin 4.4 (3.2-5.2) gm/dL Globulin 2.9 (2.2-3.7) gm/dL Albumin/Globulin Ratio 1.5 (1.0-2.3) Urine Color Urine Appearance Urine pH (5.0-9.0) Ur Specific [place] (1.000-1.035) Urine Protein (NEG) mg/dL Urine Glucose (UA) (NEG) mg/dL Urine Ketones (NEG) mg/dL Urine Occult Blood (<0.03) mg/dL Urine Nitrate (NEG) Urine Bilirubin (NEG) mg/dL Urine Urobilinogen (NEG) mg/dL Ur Leukocyte Esterase (NEG) /uL Urine RBC (0-1) /hpf Urine WBC (0-4) /hpf Ur Squamous Epith Cells (0-4) /hpf Ur Transition Epith Cell (0-2) /hpf Amorphous Crystals (0) /hpf Urine Bacteria (0) /hpf Urine Mucus (0) /hpf Ur Culture Indicated? 08/15/17 Range/Units 04:12 WBC (4.5-11.0) K/mcL RBC (4.00-5.20) M/mcL Hgb (12.0-15.0) g/dL Hct (36.0-48.0) % MCV (80.0-100.0) fL MCH (26.0-34.0) pg MCHC (31.0-36.0) g/dL RDW (11.5-14.5) % Plt Count (140-440) K/mcL MPV (7.4-10.4) fL Gran % (38.0-78.0) % Lymph % (Auto) (15.5-49.0) % [place] % (Auto) (1.0-12.0) % Eos % (Auto) (0.0-7.0) % Baso % (Auto) (0.0-2.0) % Gran # (1.8-8.0) K/mcL Lymph # (Auto) (1.5-4.8) K/mcL [place] # (Auto) (0.1-0.9) K/mcL Eos # (Auto) (0.0-0.7) K/mcL Baso # (Auto) (0.0-0.3) K/mcL VBG Lactic Acid (0.5-2.2) mmol/L Sodium (133-145) mmol/L Potassium (3.3-5.1) mmol/L Chloride (96-108) mmol/L Carbon Dioxide (22-30) mmol/L Anion Gap (8-16) BUN (8-23) mg/dl Creatinine (0.6-1.1) mg/dl GFR Calculation Glucose (70-105) mg/dL Calcium (8.6-10.4) mg/dl Total Bilirubin (0.0-1.0) mg/dL AST (0-37) U/l ALT (0-40) U/l Alkaline Phosphatase (39-117) U/L Total Protein (5.9-8.4) gm/dL Albumin (3.2-5.2) gm/dL Globulin (2.2-3.7) gm/dL Albumin/Globulin Ratio (1.0-2.3) Urine Color Yellow Urine Appearance Clear Urine pH 7.0 (5.0-9.0) Ur Specific [place] 1.013 (1.000-1.035) Urine Protein 30 A (NEG) mg/dL Urine Glucose (UA) Negative (NEG) mg/dL Urine Ketones Neg (NEG) mg/dL Urine Occult Blood 0.03 A (<0.03) mg/dL Urine Nitrate Neg (NEG) Urine Bilirubin Neg (NEG) mg/dL Urine Urobilinogen 4.0 A (NEG) mg/dL Ur Leukocyte Esterase 25 A (NEG) /uL Urine RBC 8 H (0-1) /hpf Urine WBC 70 H (0-4) /hpf Ur Squamous Epith Cells 4 (0-4) /hpf Ur Transition Epith Cell 1 (0-2) /hpf Amorphous Crystals Few A (0) /hpf Urine Bacteria 0 (0) /hpf Urine Mucus Few (0) /hpf Ur Culture Indicated? Yes Disposition Pt seen by QUALITY ASSURANCE ANALYST/PA only: No Clinical Impression: Complicated UTI (urinary tract infection) Disposition: Xfer As Outpt/Obs ([facility]) Condition: Fair Referrals: Sandi Crabtree, GISELLE, PLASMA PROCESSOR [Primary Care Provider] - Time of Disposition: 07:13
--- NOTE | 2017-08-15 07:33 | Internal Med History&Physical ---
Medical - H&P: HPI Patient information: Note initiated : 08/15/17 at 7:32 am Service Date, if different from initiated Date: [] Patient: Gin Feng 87 y/o F admitted on for family suspect UTI. Chief Complaint: [] History of present illness: Ms. Feng is a 87 year old female with past history of confusion with urinary tract infections. She developed confusion again over the last couple of days, and her family became concerned so they brought her in for evaluation. She was diagnosed with likely UTI, and given IV fluids and antibiotics, but her mental status did not clear to the satisfaction of her family, so the patient is admitted for further observation and treatment. They report that when this happens, she tends to wander off, and they had no one who could watch her 24 hours a day. Currently, the patient seems fairly awake and alert. She says she started to have burning with urination about 3 days ago. She believes she had fever and chills and confusion yesterday. She lives alone, but her daughter lives across the street from her. She says her grandsons usually come and spend the night at her house so she does not have to be alone. Otherwise she denies headaches or dizziness. She does have some chronic nasal discharge is clear with occasional green tinges. She takes Flonase for chronic sinus symptoms. She has a chronic cough which she also blames on her sinuses. She also has chronic mild dyspnea with stairs, which has been going on for about 2 years. She otherwise denies new ear or eye symptoms, sore throat, swollen glands, chest pain or palpitations, change in chronic dyspnea on exertion. She denies abdominal pain, nausea or vomiting, diarrhea or constipation. Medical History Allergic rhinitis (Chronic) Anxiety disorder (Chronic) Aortic valve insufficiency, MR, TR CHF Atrial fibrillation (Chronic) Back pain (Chronic) COPD (chronic obstructive pulmonary disease) (Chronic) confirmed on PFT 08/2015; history of smoking Constipation (Chronic) DJD (degenerative joint disease) (Chronic) Depressive disorder (Chronic) Dizziness (Chronic) Dysphagia (Chronic) Dr. Soto; history of esophageal swallowing disorder Gastroesophageal reflux (Chronic) Hypertension, benign (Chronic) Hypokalemia (Chronic) Insomnia (Chronic) Macular degeneration (Chronic) Osteoarthritis (Chronic) Osteoporosis (Chronic) Pulmonary hypertension (Chronic) Renal artery stenosis (Chronic) left sided on CT of 05/31/16 Schatzki's ring (Chronic) CVA (cerebral vascular accident) (Resolved) 1. Echocardiogram 08/24/2015 mod aortic regurg, LVEF 55% 2. ULS carotids 09/16/2015 No significant stenosis 3. 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 Acute ischemic colitis of the distal transverse colon Pneumonia (Resolved),Sepsis (Resolved) Surgical History History of appendectomy (Resolved), History of colon resection (Resolved) 2006-2 feet of small bowel removed due to ischemic gangrenous bowel secondary to adhesion and a volvulus per Dr. Thomas History of hip surgery (Resolved) 10/27/14-Dr. Ram-Right hip intramedullary nailing History of intestinal surgery (Resolved) Bowel surgery to remove adhesions Hx of adenoidectomy (Resolved) ,Hx of cataract surgery (Resolved), Hx of cholecystectomy (Resolved) 2004 Hx of esophagogastroduodenoscopy (Resolved), 11/23/14, Hx of hysterectomy (Resolved),41 years of age, Hx of oophorectomy ( Resolved) 41 years of age,Hx of plastic surgery (Resolved)45 years of age- eyelid surgery for excessive skin Hx of reduction mammoplasty (Resolved) 54 years of age Hx of tonsillectomy (Resolved) 11 years of age Medications: Unconfirmed so far: Paxil 40 mg daily Melatonin 3 mg nightly as needed Lidoderm patch topically every afternoon Lasix 20 mg daily next line fentanyl patch 12 mcg/h, every 3 days Clonazepam 1 mg p.o. daily as needed anxiety Coreg 3.125 mg p.o. twice daily Apixaban 2.5 mg p.o. twice daily Tylenol No. 3 2 tabs every 6 hours as needed pain [place] 10/325 1-2 every 4 hours as needed Oxygen for home use. They report she uses this occasionally if she feels short of breath, just as needed. Allergies: Penicillin Sulfa Ciprofloxacin Latex Tetanus Family History Sister--Malignant neoplasm of brain,Malignant Neoplasm of Skin son Malignant neoplasm of brain mother Malignant neoplasm of breast,Malignant neoplasm of colon,Essential hypertension ,Acute myocardial infarction Social History She lives alone. Her grandson does come and spend the night at her house every night, to keep an eye on her. The patient says she smoked from about age 23 until about age 38 and then quit. She does not use alcohol or drugs. She lives in her own home. pets and animals: Yes pets and animals: dog(s), cat(s) Medical - H&P: Meds Home Medications Medication Instructions Recorded Confirmed Type lidocaine 5 % topical patch 2 mg TRANSDERMA Q72 06/21/15 08/05/17 History OXYGEN AND SUPPLIES #1 each 10/28/15 08/05/17 Rx melatonin 3 mg tablet 3 mg PO HS PRN 05/29/16 08/05/17 History apixaban 2.5 mg tablet 2.5 mg PO BID #60 tab 08/06/16 08/05/17 Rx paroxetine 40 mg tablet 40 mg PO QDAY 90 Days #90 tab 01/01/17 08/05/17 Rx fentanyl 12 mcg/hr transdermal 1 patch TRANSDERMA Q72H #10 patch 02/05/17 Rx patch Potassium Chloride [Klor-Con M20] [facility] [place] #1 tab.er.prt 03/21/17 Rx Walker [Ultra-Light Rollator] 1 each MC DAILY #1 each 03/21/17 08/05/17 Rx acetaminophen 300 mg-codeine 30 mg 1 tab PO Q6H PRN #120 tab 08/05/17 08/05/17 Rx tablet clonazepam 1 mg tablet 1 mg PO .COMPLEX PRN #90 tab 08/05/17 08/05/17 Rx Fluticasone Propionate [Flonase] 1 spray INTRANASAL PRN PRN 08/15/17 08/15/17 History Home 02 HS 08/15/17 History furosemide 20 mg tablet 20 mg PO QDAY #90 tab 08/15/17 08/15/17 Rx Allergies Allergy/AdvReac Type Severity Reaction Status Date / Time latex [LATEX] Allergy Severe SWELLING Verified 08/15/17 10:04 tetanus toxoid, adsorbed Allergy Intermediate Swelling Verified 08/15/17 10:04 adhesive tape Allergy Mild Rash Verified 08/15/17 09:49 penicillin V Allergy Mild Rash Verified 08/15/17 10:04 ciprofloxacin [From Cipro] AdvReac Intermediate Cramping Verified 08/15/17 03:57 of the Muscles Sulfa (Sulfonamide AdvReac Mild Vomiting Verified 08/15/17 10:04 Antibiotics) Medical - H&P: Exam - Constitutional Vitals: Temp Pulse Resp BP Pulse Ox 98.4 F 67 20 170/88 96 08/15/17 06:36 08/15/17 06:36 08/15/17 06:36 08/15/17 06:36 08/15/17 06:36 On exam, she is a well-developed well-nourished, slender white female in no acute distress. When I entered the room this morning, she is reading the newspaper. She is quite hard of hearing Head: Normocephalic, atraumatic. Eyes: PERRLA, EOMI, anicteric. No nystagmus is noted. Ears: TMs and canals are clear. Pharynx: Is clear. She has a full upper plate. Lower teeth are in good repair. Mucosa appears normal. Neck: Is supple, without obvious lymphadenopathy, JVD, thyromegaly, bruits. Cardiac exam shows slightly irregular rhythm, with normal S1 and S2, without obvious murmurs, rubs, gallops. Lungs are clear to auscultation, without rales, rhonchi, wheezes. Abdomen: Is soft and nontender without obvious masses. Bowel sounds are active. There is no guarding or rebound. Extremities: Show no cyanosis, clubbing, edema. neurologic: Patient is alert and oriented 3. Mood and affect appear normal. She is somewhat hard of hearing. Exam is otherwise grossly nonfocal. Medical - H&P: Reslt - Labs CBC & Chem 7: 08/15/17 03:55 08/15/17 03:55 Labs: Short CBC 08/15/17 Range/Units 03:55 WBC 6.5 (4.5-11.0) K/mcL Hgb 11.1 L (12.0-15.0) g/dL Hct 33.2 L (36.0-48.0) % Plt Count 103 L (140-440) K/mcL BMP 08/15/17 03:55 Sodium 140 Potassium 3.8 Chloride 101 Carbon Dioxide 25 BUN 13 Creatinine 0.8 Glucose 105 Calcium 8.9 Liver Function 08/15/17 Range/Units 03:55 Total Bilirubin 0.9 (0.0-1.0) mg/dL AST 21 (0-37) U/l ALT 8 (0-40) U/l Alkaline Phosphatase 65 (39-117) U/L Albumin 4.4 (3.2-5.2) gm/dL Urine 08/15/17 Range/Units 04:12 Urine Color Yellow Urine Appearance Clear Urine pH 7.0 (5.0-9.0) Ur Specific [place] 1.013 (1.000-1.035) Urine Protein 30 A (NEG) mg/dL Urine Glucose (UA) Negative (NEG) mg/dL August 15: Urinalysis: Shows 30 mg of protein, 4 urobilinogen, 25 leukocyte esterase, 8 red cells, 70 white blood cells, no bacteria. Urine culture: Is growing greater than 100,000 E. coli. Sensitivities to follow. Next Chest x-ray: Shows cardiomegaly without CHF. Mild pulmonary fibrosis. Stable 1 cm right upper lobe nodule. Medical - H&P: A/P (1) Altered mental status Current visit: Yes Status: Acute (2) E. coli UTI Current visit: Yes Status: Acute (3) Congestive heart failure Current visit: No Status: Chronic (4) COPD (chronic obstructive pulmonary disease) Problem details: confirmed on PFT 08/2015; history of smoking Current visit: No Status: Chronic (5) Atrial fibrillation Problem details: restart Coumadin tomorrow after eval completed, INR 1.8 today Current visit: No Status: Chronic - Narrative A/P Narrative: #1. Neurologic Patient presents with mild confusion, which apparently has occurred in the past in association with acute infection. This seems to be clearing this morning. -Patient admitted to observation. -Continue IV fluids and IV antibiotics, pending culture sensitivities. History of minor stroke. Continue Eliquis. 2. Infectious disease. Patient presents with apparent E. coli UTI. -She has multiple antibiotic allergies. She will be covered with Rocephin, pending culture results. -Patient also has chronic sinus symptoms. If recurrent confusion or fever, consider sinus CT 3. CODE STATUS: Patient has signed a DNR order. She confirms this with me today. She says her daughter has her POA. 4. DVT prophylaxis: Subcu heparin. 5. Pulmonary. History of COPD. 6. Cardiac. Chronic atrial fibrillation, rate controlled. -Continue Eliquis. 7. Chronic pain. Continue Tylenol with codeine as needed. Continue fentanyl 12 mcg/h. 8. History of depression and anxiety. Continue Paxil and Klonopin.
--- NOTE | 2017-08-15 08:01 | XRay Report ---
HISTORY: Reason for Exam:fever, confusion FINDINGS: Heart is mild to moderately enlarged. There is no pulmonary vascular congestion or evidence of pneumonia. There is some pulmonary fibrosis with several thin linear opacities in both lungs. A vague nodular density is present laterally in the right upper lobe which measures approximately 5 x 10 mm. This has not changed significantly from a prior chest CT done on 05/25/16. There is probably scar tissue or granuloma. There is no pleural effusion. The aorta is moderately tortuous. IMPRESSION: Cardiomegaly, without congestive heart failure Mild pulmonary fibrosis Stable 1 cm right upper lobe nodule Interpreted and Authenticated by: Sunil Bruner 08/15/17
[2017-08-15] MEDS ORDERED: MAGNESIUM HYDROXIDE 30 ML ORAL.SUSP PO PRN (08:18)
[2017-08-15] MEDS ORDERED: ALBUTEROL SULFATE 2.5 MG/3 ML NEBULIZER NEB PRN (08:18)
[2017-08-15] MEDS ORDERED: cefTRIAXone 1 GM in DEXTROSE 5% IN WATER 50 ML IV SCH (08:18)
[2017-08-15] MEDS ORDERED: DOCUSATE SODIUM 100 MG CAPSULE PO PRN (08:18)
[2017-08-15] MEDS ORDERED: ONDANSETRON 4 MG/2 ML VIAL IV PRN (08:18)
[2017-08-15] MEDS ORDERED: ACETAMINOPHEN 325 MG TABLET PO PRN (08:18)
[2017-08-15] MEDS ORDERED: 0.9 % SODIUM CHLORIDE 10 ML SYRINGE IV SCH (14:00)
[2017-08-15] MEDS ORDERED: ACETAMINOPHEN W/CODEINE #3 1 TABLET PO PRN (14:43)
[2017-08-15] MEDS ORDERED: PARoxetine 20 MG TABLET PO SCH (14:46)
[2017-08-15] MEDS ORDERED: APIXABAN 5 MG TABLET PO ONE (15:00)
--- NOTE | 2017-08-15 16:33 | Discharge Summary ---
Medical - DS: Prov Patient information: Note initiated : 08/15/17 at 4:28 pm Service Date, if different from initiated Date: [] Patient: Gin Feng 87 y/o F admitted on 08/15/17 for Family Suspects UTI. Chief Complaint: [] Date of admission: 08/15/17 08:03 Discharge date: 08/15/17 Primary care physician: Sandi Crabtree Admitting clinician: Kalli Chavarria Consults: 08/15/17 07:16 Consult to Physician [CONS] Stat Comment: Consulting Provider: Kalli Chavarria Reason For Exam: Physician to Consult Attending physician on discharge: Kalli Chavarria Medical - DS: Meds - Discharge Medications Prescriptions: Cephalexin [Keflex] 500 mg PO BID #10 cap Active and Home Medications: Discharge medications: Keflex 500 mg p.o. twice daily, 5 days, pending urine culture sensitivities. Continue all previous medications, as below. Previous home Medications lidocaine 5 % topical patch 2 mg TRANSDERMA Q72 06/21/15 [History Confirmed Last Taken 08/14/17] OXYGEN AND SUPPLIES #1 each 10/28/15 [Rx Confirmed 08/05/17 Last Taken 02/21/17] melatonin 3 mg tablet 3 mg PO HS PRN 05/29/16 [History Confirmed 08/05/17 Last Taken 08/14/17] apixaban 2.5 mg tablet 2.5 mg PO BID #60 tab 08/06/16 [Rx Confirmed 08/05/17 Last Taken 08/14/17] paroxetine 40 mg tablet 40 mg PO QDAY 90 Days #90 tab 01/01/17 [Rx Confirmed Last Taken 08/14/17] fentanyl 12 mcg/hr transdermal patch 1 patch TRANSDERMA Q72H #10 patch 02/05/17 [Rx Confirmed 08/05/17 Last Taken 08/14/17] Potassium Chloride [Klor-Con M20] 20 meq PO QAMCC #1 tab.er.prt 03/21/17 [Rx Confirmed 08/05/17 Last Taken 08/14/17] Walker [Ultra-Light Rollator] 1 each MC DAILY #1 each 03/21/17 [Rx Confirmed Last Taken 08/09/17] acetaminophen 300 mg-codeine 30 mg tablet 1 tab PO Q6H PRN #120 tab 08/05/17 [ Rx Confirmed 08/05/17 Last Taken 08/14/17] clonazepam 1 mg tablet 1 mg PO .COMPLEX PRN #90 tab 08/05/17 [Rx Confirmed 08/05 Last Taken 08/14/17] Fluticasone Propionate [Flonase] 1 spray INTRANASAL PRN PRN 08/15/17 [History Confirmed 08/15/17 Last Taken Unknown] Home 02 HS 08/15/17 [History Last Taken 08/15/17] furosemide 20 mg tablet 20 mg PO QDAY #90 tab 08/15/17 [Rx Confirmed 08/15/17 Last Taken Unknown] Medical - DS: Hosp Hospital course: Mr. Feng is a 87 year old F History of present illness: Ms. Feng is a 87 year old female with past history of confusion with urinary tract infections. She developed confusion again over the last couple of days, and her family became concerned so they brought her in for evaluation. She was diagnosed with likely UTI, and given IV fluids and antibiotics, but her mental status did not clear to the satisfaction of her family, so the patient is admitted for further observation and treatment. They report that when this happens, she tends to wander off, and they had no one who could watch her 24 hours a day. Currently, the patient seems fairly awake and alert. She says she started to have burning with urination about 3 days ago. She believes she had fever and chills and confusion yesterday. She lives alone, but her daughter lives across the street from her. She says her grandsons usually come and spend the night at her house so she does not have to be alone. Otherwise she denies headaches or dizziness. She does have some chronic nasal discharge is clear with occasional green tinges. She takes Flonase for chronic sinus symptoms. She has a chronic cough which she also blames on her sinuses. She also has chronic mild dyspnea with stairs, which has been going on for about 2 years. She otherwise denies new ear or eye symptoms, sore throat, swollen glands, chest pain or palpitations, change in chronic dyspnea on exertion. She denies abdominal pain, nausea or vomiting, diarrhea or constipation. Hospital course: The patient's mental status improved, and she was back to baseline by this evening. Her daughter arrived to check on her, and said that she seem back to normal, and wanted to take her home. The patient was quite adamant about going home. Discharge diagnosis: Urinary tract infection. Mild confusion/medical delirium. Soft. - Time Spent with Patient Total time spent providing and/or coordinating discharge services: Greater than 30 minutes Medical - DS: Exam - Constitutional Vitals: Vital Signs Temp Pulse Pulse Resp BP BP Pulse Ox 08/15/17 11:58 97.6 F 20 175/99 94 08/15/17 09:09 97.6 F 70 20 186/100 94 08/15/17 07:36 59 L 95 08/15/17 06:36 98.4 F 67 20 170/88 96 08/15/17 05:34 68 175/88 94 08/15/17 04:31 79 08/15/17 04:28 77 24 H 170/90 95 08/15/17 04:18 101.8 F H 08/15/17 04:03 101.8 F H 95 H 24 H 190/105 89 L 08/15/17 04:01 48 L 164/76 94 08/15/17 03:56 188/96 08/15/17 03:35 101.8 F H 95 H 24 H 190/105 89 L Intake and Output 08/15/17 08/15/17 08/15/17 05:59 13:59 21:59 Intake Total 1000 / 1000 100 / 100 Output Total 350 / 350 Balance 1000 / 1000 -250 / -250 Intake: IV 1000 / 1000 Sodium Chloride 0.9% 1,000 ml @ 1000 / 1000 Wide Open IV BOLUS ONE Rx#: [id number] Oral 100 / 100 Output: Void Amount 350 / 350 Other: Meal Breakfast Lunch Percent of Meal Consumed 50% 100% Feeding Ability Independent # Bowel Movements 1 Weight 125 lb 129 lb Patient Weight 08/16/17 05:59 Weight 129 lb The patient is awake and alert, in no acute distress. She is fully dressed. Exam is unchanged. Medical - DS: Data Labs on day of discharge: Labs from last 24 hours 08/15/17 08/15/17 08/15/17 04:12 03:55 03:55 WBC RBC Hgb Hct MCV MCH MCHC RDW Plt Count MPV Gran % Lymph % (Auto) [place] % (Auto) Eos % (Auto) Baso % (Auto) Gran # Lymph # (Auto) [place] # (Auto) Eos # (Auto) Baso # (Auto) VBG Lactic Acid 0.9 Sodium 140 Potassium 3.8 Chloride 101 Carbon Dioxide 25 Anion Gap 14.0 BUN 13 Creatinine 0.8 GFR Calculation 67 Glucose 105 Calcium 8.9 Total Bilirubin 0.9 AST 21 ALT 8 Alkaline Phosphatase 65 Total Protein 7.3 Albumin 4.4 Globulin 2.9 Albumin/Globulin Ratio 1.5 Urine Color Yellow Urine Appearance Clear Urine pH 7.0 Ur Specific [place] 1.013 Urine Protein 30 A Urine Glucose (UA) Negative Urine Ketones Neg Urine Occult Blood 0.03 A Urine Nitrate Neg Urine Bilirubin Neg Urine Urobilinogen 4.0 A Ur Leukocyte Esterase 25 A Urine RBC 8 H Urine WBC 70 H Ur Squamous Epith Cells 4 Ur Transition Epith Cell 1 Amorphous Crystals Few A Urine Bacteria 0 Urine Mucus Few Ur Culture Indicated? Yes 08/15/17 03:55 WBC 6.5 RBC 3.80 L Hgb 11.1 L Hct 33.2 L MCV 87.3 MCH 29.2 MCHC 33.5 RDW 15.0 H Plt Count 103 L MPV 9.7 Gran % 69.2 Lymph % (Auto) 18.7 [place] % (Auto) 11.1 Eos % (Auto) 0.9 Baso % (Auto) 0.1 Gran # 4.5 Lymph # (Auto) 1.2 L [place] # (Auto) 0.7 Eos # (Auto) 0.1 Baso # (Auto) 0 VBG Lactic Acid Sodium Potassium Chloride Carbon Dioxide Anion Gap BUN Creatinine GFR Calculation Glucose Calcium Total Bilirubin AST ALT Alkaline Phosphatase Total Protein Albumin Globulin Albumin/Globulin Ratio Urine Color Urine Appearance Urine pH Ur Specific [place] Urine Protein Urine Glucose (UA) Urine Ketones Urine Occult Blood Urine Nitrate Urine Bilirubin Urine Urobilinogen Ur Leukocyte Esterase Urine RBC Urine WBC Ur Squamous Epith Cells Ur Transition Epith Cell Amorphous Crystals Urine Bacteria Urine Mucus Ur Culture Indicated? Preliminary micro results at discharge 08/15/17 04:12 Urine Culture - Preliminary Urine - Clean Void Mid-Stream Escherichia coli August 15: Urinalysis: Shows 30 mg of protein, 4 urobilinogen, 25 leukocyte esterase, 8 red cells, 70 white blood cells, no bacteria. Urine culture: Is growing greater than 100,000 E. coli. Sensitivities to follow. Next Chest x-ray: Shows cardiomegaly without CHF. Mild pulmonary fibrosis. Stable 1 cm right upper lobe nodule. Medical - DS: A/P - Patient/Caregiver Discharge Instructions Activity: increase activity as tolerated Diet: Low Sodium (2gm) Additional Instructions: 1. Confusion. Likely due to infection. Resolved. 2. Urinary tract infection with E. coli. Please take Keflex as prescribed. Please call your doctor tomorrow or Saturday, to see if she can look up the sensitivities for this bacteria. Please drink lots of fluids. Discharge medications: Keflex 500 mg p.o. twice daily, 5 days, pending urine culture sensitivities. Continue all previous medications, as below. Previous home Medications: lidocaine 5 % topical patch 2 mg TRANSDERMA Q72 06/21/15 [History Confirmed Last Taken 08/14/17] OXYGEN AND SUPPLIES #1 each 10/28/15 [Rx Confirmed 08/05/17 Last Taken 02/21/17] melatonin 3 mg tablet 3 mg PO HS PRN 05/29/16 [History Confirmed 08/05/17 Last Taken 08/14/17] apixaban 2.5 mg tablet 2.5 mg PO BID #60 tab 08/06/16 [Rx Confirmed 08/05/17 Last Taken 08/14/17] paroxetine 40 mg tablet 40 mg PO QDAY 90 Days #90 tab 01/01/17 [Rx Confirmed Last Taken 08/14/17] fentanyl 12 mcg/hr transdermal patch 1 patch TRANSDERMA Q72H #10 patch 02/05/17 [Rx Confirmed 08/05/17 Last Taken 08/14/17] Potassium Chloride [Klor-Con M20] 20 meq PO QAC #1 tab.er.prt 03/21/17 [Rx Confirmed 08/05/17 Last Taken 08/14/17] Walker [Ultra-Light Rollator] 1 each DAILY #1 each 03/21/17 [Rx Confirmed Last Taken 08/09/17] acetaminophen 300 mg-codeine 30 mg tablet 1 tab PO Q6H PRN #120 tab 08/05/17 [ Rx Confirmed 08/05/17 Last Taken 08/14/17] clonazepam 1 mg tablet 1 mg PO .COMPLEX PRN #90 tab 08/05/17 [Rx Confirmed 08/05 Last Taken 08/14/17] Fluticasone Propionate [Flonase] 1 spray INTRANASAL PRN PRN 08/15/17 [History Confirmed 08/15/17 Last Taken Unknown] Home 02 HS 08/15/17 [History Last Taken 08/15/17] furosemide 20 mg tablet 20 mg PO QDAY #90 tab 08/15/17 [Rx Confirmed 08/15/17 Last Taken Unknown] Prescriptions: Cephalexin [Keflex] 500 mg PO BID #10 cap - Problem Maintenance (1) Altered mental status Status: Acute (2) E. coli UTI Status: Acute (3) Congestive heart failure Status: Chronic Qualifiers: Congestive heart failure type: unspecified congestive heart failure type Congestive heart failure chronicity: unspecified congestive heart failure chronicity Qualified Code(s): I50.9 - Heart failure, unspecified (4) COPD (chronic obstructive pulmonary disease) Status: Chronic Comment: confirmed on PFT 08/2015; history of smoking Qualifiers: COPD type: unspecified COPD Qualified Code(s): J44.9 - Chronic obstructive pulmonary disease, unspecified (5) Atrial fibrillation Status: Chronic Comment: restart Coumadin tomorrow after eval completed, INR 1.8 today Qualifiers: Atrial fibrillation type: paroxysmal Qualified Code(s): I48.0 - Paroxysmal atrial fibrillation - Follow up Plan Follow up with: Sandi Crabtree DNP, [employer] [Primary Care Provider] - 08/19/17 9:30 am (check in at 9:15 am.) Disposition: Home, Self-Care Prognosis: Good Rehab Potential: Good I certify that the patient requires SNF services: No Overall status at discharge: patient is progressing back to baseline Medical - DS: Qual - VTE Deep Vein Thrombosis/Pulmonary Embolism Present on Admission: No
[2017-08-15] MEDS ORDERED: APIXABAN 5 MG TABLET PO SCH (21:00)
[2017-08-16] MEDS ORDERED: cefTRIAXone 1 GM VIAL IV SCH (09:00)
== END 2017-08-15 17:30 | disposition home or self-care (01) ==
LOC: ED 03:34 → MEDSUR 03:34
PROVIDERS: ADMIT Internal Medicine; ATTEND Internal Medicine